=== PATIENT | female | born 1950 | race Caucasian/White ===

== ENCOUNTER 2022-12-04 23:38 | Emergency (ER) | payer MEDICARE, SELFPAY ==
--- NOTE | ~2022-12-04 | CT_ITS ---
EXAMINATION: CT brain wo con DATE: 12/05/2022 01:10 INDICATION: Head injury. TECHNIQUE: Computed tomography (CT) of the head was performed without intravenous contrast. The mA wa s adjusted according to patient size. Iterative reconstruction technique was employed. The dose-lengt h product was 605.33 mGy-cm. COMPARISON: None FINDINGS: There is diffuse brain volume loss. There are old infarcts in the cerebellum bilaterally. T here are scattered areas of low attenuation in the cerebral white matter. The ventricles are normal i n size for the degree of diffuse brain volume loss. The paranasal sinuses are clear. The mastoid air cells are normal. The orbits are normal. IMPRESSION: 1. 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 2. Moderate nonspecific cerebral white matter disease, which likely represents chronic small vessel i schemic disease. Reviewed, dictated and finalized at location A. H [employer]ADER IMPRESSION: 1. 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 2. Moderate nonspecific cerebral white matter disease, which likely represents chronic small vessel ischemic disease.
--- NOTE | ~2022-12-04 | CT_ITS ---
EXAMINATION: CT cervical spine wo con DATE: 12/05/2022 01:10 INDICATION: Head injury. Fall. TECHNIQUE: Computed tomography (CT) of the cervical spine was performed without intravenous contrast. Automated exposure control and iterative reconstruction technique were employed. The dose-length pro duct was 444.62 mGy-cm. COMPARISON: None FINDINGS: There is hypolordosis of cervical spine. There is 2 mm retrolisthesis of C6 on C7. Vertebra l body heights are normal. There is mildly decreased disc height at C4-C5 and C5-C6 and moderately de creased disc height at C6-C7. There is a 14 mm nodule in right thyroid lobe, likely not clinically si gnificant. The following disc levels are specifically discussed: C2-C3: There is no uncovertebral joint osteoarthritis. There is severe right and mild left facet join t osteoarthritis. There is mild right neural foraminal stenosis. There is no central canal stenosis. C3-C4: There is mild bilateral uncovertebral joint osteoarthritis. There is severe bilateral facet gualberto int osteoarthritis. There is mild bilateral neural foraminal stenosis. There is mild central canal st enosis. C4-C5: There is no uncovertebral joint osteoarthritis. There is mild bilateral facet joint osteoarthr itis. There is no neural foraminal stenosis. There is no central canal stenosis. C5-C6: There is no uncovertebral joint osteoarthritis. There is severe right and mild left facet join t osteoarthritis. There is no neural foraminal stenosis. There is mild central canal stenosis. C6-C7: There is severe bilateral uncovertebral joint osteoarthritis. There is mild bilateral facet gualberto int osteoarthritis. There is moderate bilateral neural foraminal stenosis. There is mild central aureliano l stenosis. C7-T1: There is no uncovertebral joint osteoarthritis. There is severe bilateral facet joint osteoart hritis. There is mild bilateral neural foraminal stenosis. There is no central canal stenosis. IMPRESSION: 1. No fracture. 2. Moderate cervical spondylosis. Reviewed, dictated and finalized at location A. RER
[2022-12-04 23:45] VITALS: BP 88/74; PULSE 97; RESP 20; TEMP 36.7; O2SAT 97
--- NOTE | 2022-12-05 00:35 | ED.FALL ---
HPI - Fall General Chief Complaint: Fall Stated Complaint: Fall, head lac/skin tear Time Seen by Provider: 12/04/22 23:43 History of Present Illness HPI Narrative: 72-year-old female from [facility] presents to the ER via EMS for evaluation of fall injury. Patient has a history of dementia, hyperlipidemia, anxiety depression, anemia, diabetes and peripheral vascular disease which she has anticoagulated for on Eliquis. Patient states that she rolled out of bed and staff states that she struck her head. Patient is denying any headaches, pain to her head or neck pain. Denies altered mental status or LOC. Denies dizziness or lightheadedness. Denies visual or hearing changes. No other injuries reported. Related Data Allergies Allergy/AdvReac Type Severity Reaction Status Date / Time naproxen Allergy Unknown Verified 12/04/22 23:52 Review of Systems Review of Systems: CONSTITUTIONAL: Denies fever, chills, or sweats. EYES: Denies visual changes, redness, or discharge. ENT: Denies rhinorrhea, congestion, sore throat, or otalgia. CARDIOVASCULAR: Denies chest pain, palpitations, or edema. RESPIRATORY: Denies cough or dyspnea. GASTROINTESTINAL: Denies abdominal pain, nausea, vomiting, or diarrhea. GENITOURINARY: Denies dysuria or hematuria. SKIN: Denies rash or itching. MUSCULOSKELETAL: Denies back pain, joint pain, or myalgia. NEUROLOGIC: Denies headache, numbness, dizziness, or weakness. PSYCHIATRIC: Denies anxiety or depression. Exam Narrative: GENERAL: Chronically ill-appearing, well-nourished, no physical limitations, and in no acute distress. HEAD: Normocephalic, atraumatic. EYES: Conjunctivae normal, PERRLA and EOMI. ENT: External nose normal, Nares clear, no rhinorrhea or epistaxis. Oropharynx without tonsillar hypertrophy exudate or other lesions. External ears normal, bilateral TMs normal bilaterally NECK: Supple. No carotid bruits or JVD CHEST: Clear to auscultation. No respiratory distress. No wheezes rales or rhonchi. No tenderness. HEART: Regular rate and rhythm. No murmur heard. Normal peripheral pulses. ABDOMEN: Soft, nontender, nondistended, normal active bowel sounds. BACK: No midline cervical/thoracic/lumbar tenderness, step-offs, bony abnormality; FROM EXTREMITIES: Normal range of motion. No edema. No clubbing or cyanosis SKIN: Warm, dry, no rash. No noted wounds NEURO: No focal deficits. Alert and oriented x3. MAEW. CN's II-XI intact bilaterally PSYCH: Cooperative. Normal mood and affect. Course Vital Signs Vital signs: Vital Signs Temperature 36.7 C 12/04/22 23:45 Pulse Rate 97 12/04/22 23:45 Respiratory Rate 20 12/04/22 23:45 Blood Pressure 88/74 L 12/04/22 23:45 Pulse Oximetry 97 12/04/22 23:45 Oxygen Delivery Room Air 12/04/22 23:45 Temperature 36.7 C 12/04/22 23:45 Pulse Rate 97 12/04/22 23:45 Respiratory Rate 20 12/04/22 23:45 Blood Pressure 88/74 L 12/04/22 23:45 Pulse Oximetry 97 12/04/22 23:45 Oxygen Delivery Room Air 12/04/22 23:45 MDM - Fall Imaging Data Radiologist's impression: CT head impression: No acute abnormality identified. CT C-spine impression: No acute cervical spine abnormality Discharge Plan Discharge Clinical Impression: Fall Patient Disposition: Home, Self-Care Condition: Stable Instructions: Antibiotic Form, Fall Prevention (ED) Follow-up/Referrals: PHYSICIAN,[facility] [employer] [Primary Care Provider] - Time of Disposition: 01:43
--- NOTE | 2022-12-05 00:40 | PC.NURSE ---
assumed care of pt. at this time. report from Rosamaria Hernandez RN
--- NOTE | 2022-12-05 01:55 | PC.NURSE ---
Report called to Trina, caregiver at [facility] at [id number].
[2022-12-05 03:03] VITALS: BP 95/73; PULSE 63; RESP 18; O2SAT 96
[2022-12-05 06:06] VITALS: BP 111/74; PULSE 74; RESP 17; O2SAT 97
[2022-12-05 06:52] VITALS: BP 115/75; PULSE 82; RESP 17; O2SAT 97
[2022-12-05 07:40] VITALS: BP 105/71; PULSE 78; RESP 18; O2SAT 99
== END 2022-12-05 09:09 ==
PROVIDERS: Emergency Provider Nurse Practitioner Family
DX: S09.90XA Unspecified injury of head, initial encounter (principal); W06.XXXA Fall from bed, initial encounter; F03.90 Unspecified dementia, unspecified severity, without behavioral disturbance, psychotic disturbance, mood disturbance, and anxiety; E78.5 Hyperlipidemia, unspecified; E11.9 Type 2 diabetes mellitus without complications; I73.9 Peripheral vascular disease, unspecified; Z79.01 Long term (current) use of anticoagulants
CPT/HCPCS: 70450; 72125; 99284